=== PATIENT | male | born 1995 | race Two or more races ===

== ENCOUNTER 2022-05-11 05:54 | Emergency (ER) | payer SELFPAY ==
[~2022-05-11] VITALS: Ht 177.8 cm; Wt 113.4 kg
[2022-05-11] MEDS ORDERED: LORazepam 0.5 MG TAB PO ONE (06:00)
[2022-05-11 07:51] VITALS: BP 152/72
== END 2022-05-11 07:53 | disposition home or self-care (01) ==
LOC: ER 05:54 → EDBD 05:54 → ER 07:53
DX: F15.10 Other stimulant abuse, uncomplicated (principal); F10.90 Alcohol use, unspecified, uncomplicated; F17.210 Nicotine dependence, cigarettes, uncomplicated